=== PATIENT | male | born 1955 | race Caucasian/White ===

== ENCOUNTER 2021-04-24 18:44 | Inpatient (IN) ==
[2021-04-24] MEDS ORDERED: *HR* Dextrose 50 % in Water (Syg) 50 ML SYRINGE ONE (23:21)
[2021-04-24] MEDS ORDERED: *HR* Promethazine 25 MG/ML VIAL IM PRN (23:23)
[2021-04-24] MEDS ORDERED: Acetaminophen 325 MG TABLET PO PRN (23:23)
[2021-04-24] MEDS ORDERED: Naloxone 0.4 MG/ML INJ IVP PRN (23:23)
[2021-04-24] MEDS ORDERED: Dextrose Gel 15 GM/37.5 ML TUBE PO PRN ×2 (23:26)
[2021-04-24] MEDS ORDERED: D5% in Water 1,000 ML IVC PRN (23:26)
[2021-04-24] MEDS ORDERED: Saliva Stimulant 44.3ml BOTTLE PO PRN (23:29)
[2021-04-24] MEDS: *HR* Dextrose 50 % in Water (Syg) 50 ML SYRINGE IVP PRN (23:54)
[2021-04-25] MEDS ORDERED: Ampicillin/Sulbactam 3,000 MG in 0.9 % Sodium Chloride Mini Bag 100 ML IVPB SCH
[2021-04-25] MEDS ORDERED: Insulin DETEMIR 100 UNIT/ML X5UNITS SUBQ STA (00:39)
[2021-04-25 00:43] LABS: Adenovirus Not Detected (Not Detect); Bordetella Pertussis Not Detected (Not Detect); Chlamydophila pneumoniae Not Detected (Not Detect); Coronavirus 229E Not Detected (Not Detect); Coronavirus HKU1 Not Detected (Not Detect); Coronavirus NL63 Not Detected (Not Detect); Coronavirus OC43 Not Detected (Not Detect); Human Metapneumovirus DETECTED (Not Detect); Human Rhinovirus/Enterovirus Not Detected (Not Detect); Influenza A Subtype 2009 H1 Not Detected (Not Detect); Influenza B Not Detected (Not Detect); Mycoplasma pneumoniae Not Detected (Not Detect); Parainfluenza Virus 1 Not Detected (Not Detect); Parainfluenza Virus 2 Not Detected (Not Detect); Parainfluenza Virus 3 Not Detected (Not Detect); Parainfluenza Virus 4 Not Detected (Not Detect); Respiratory Syncytial Virus Not Detected (Not Detect); SARS-CoV-2 Not Detected (Not Detect)
[2021-04-25 00:45] LABS: VBG HCO3 30 mEq/L (21-27); VBG PCO2 36 mmHg (41-51); VBG PH 7.53 pH Units (7.32-7.42); VBG PO2 158 mmHg (25-50)
[2021-04-25 01:02] LABS: BUN/Creatinine Ratio 26 (6-26); Blood Urea Nitrogen 19 mg/dL (8-23); Calcium 7.7 mg/dL (8.6-10.3); Carbon Dioxide 30 mEq/L (23-29); Chloride 108 mEq/L (98-107); Glucose 90 mg/dL (70-105); Osmolality,Calculated 322 (280-300); Sodium 155 mEq/L (136-145); eGFR For African Americans > 60 (> 60); eGFR For Non-African Americans > 60 (> 60)
[2021-04-25 01:06] LABS: Chol/HDL Ratio 4.3 (0-4.9); Troponin I 0.06 ng/mL (< 0.04)
[2021-04-25 01:17] LABS: Thyroid Stimulating Hormone 0.333 mcIU/mL (0.340-5.600)
[2021-04-25 01:25] LABS: Folate 14.3 ng/mL (3.0-16.0)
[2021-04-25] MEDS ORDERED: Potassium Chloride 20 MEQ in D5% in Water 1,000 ML IVC SCH ×2 (02:45→03:30)
[2021-04-25 03:26] LABS: Estimated Average Glucose 278 mg/dl; Hemoglobin A1C 11.3 %
[2021-04-25] MEDS: Ipratropium/Albuterol Neb 3 ML IH SCH ×6 (04:14→23:34)
[2021-04-25] MEDS: Calcium Gluconate 1gm/50mL 1 GM/50 ML BAG IVPB SCH ×2 (05:45→06:47)
[2021-04-25 06:00] LABS: VBG HCO3 30 mEq/L (21-27); VBG PCO2 43 mmHg (41-51); VBG PH 7.45 pH Units (7.32-7.42); VBG PO2 147 mmHg (25-50)
[2021-04-25 06:02] LABS: Basophils % 0.1 %; Eosinophils % 0.1 %; Hematocrit 29.2 % (37.5-50.1); Immature Granulocytes % 0.6 % (0-4); Lymphocytes # 1.6 K/mcL (0.6-4.6); Lymphocytes % 10.3 %; Mean Corpuscular HGB Conc 30.5 g/dL (31.6-35.5); Mean Corpuscular Hemoglobin 24.8 pg (28.0-33.3); Mean Corpuscular Volume 81.3 fL (83.0-100.0); Mean Platelet Volume 9.4 fL (9.4-12.4); Monocytes # 0.8 K/mcL (0.0-1.3); Monocytes % 5.1 %; Platelet Count 191 K/mcL (140-400); Red Blood Count 3.59 M/mcL (4.19-5.50); Red Cell Distribution Width 25.1 % (11.5-14.5); Segmented Neutrophils % 83.8 %; White Blood Count 15.6 K/mcL (4.3-11.1)
[2021-04-25 06:14] LABS: Hemoglobin 8.9 g/dL (12.9-16.9); Neutrophils # 13.1 K/mcL (1.6-8.9)
[2021-04-25 06:25] LABS: BUN/Creatinine Ratio 30 (6-26); Blood Urea Nitrogen 19 mg/dL (8-23); Calcium 8.4 mg/dL (8.6-10.3); Carbon Dioxide 31 mEq/L (23-29); Chloride 99 mEq/L (98-107); Glucose 391 mg/dL (70-105); Osmolality,Calculated 299 (280-300); Potassium 3.7 mEq/L (3.5-5.1); Sodium 135 mEq/L (136-145); eGFR For African Americans > 60 (> 60); eGFR For Non-African Americans > 60 (> 60)
[2021-04-25 06:27] LABS: Anisocytosis 1+ (Not Present)
[2021-04-25 06:28] LABS: Hypochromasia Present (Not Present); Platelet Estimate Normal (Normal)
[2021-04-25] MEDS: *HR* Enoxaparin 40 MG/0.4 ML SYRINGE SQ SCH (06:47)
[2021-04-25] MEDS ORDERED: Insulin LISPRO 300 UNITS/3 ML VIAL SUBQ SCH (07:30)
[2021-04-25] MEDS: Budesonide/Formoterol 160/4.5 1 PUFF INH IH SCH ×2 (07:48→19:53)
[2021-04-25 08:01] LABS: ABG Base Excess 8 mEq/L (-2 to 3); ABG HCO3 32 mEq/L (21-27); ABG Oxygen Saturation 98 % (95-98); ABG PCO2 39 mmHg (35-45); ABG PH 7.52 pH Units (7.32-7.45); ABG PO2 97 mmHg (85-104); ABG TCO2 33 mEq/L (20-26)
[2021-04-25] MEDS: Insulin LISPRO 300 UNITS/3 ML VIAL SUBQ SCH ×4 (08:04→16:55)
[2021-04-25] MEDS: Lactobacillus 1 EACH CAP.SPRINK PO SCH ×2 (08:06→20:18)
[2021-04-25] MEDS: carvediloL 6.25 MG TABLET PO SCH ×2 (08:06→16:20)
[2021-04-25] MEDS: Nicotine 21 MG PATCH.TD24 TD SCH (08:07)
[2021-04-25] MEDS: Chlorhexidine Rinse 15 ML MOUTHWASH MM SCH ×2 (08:07→20:18)
[2021-04-25] MEDS: Piperacillin/Tazobactam 3.375 GM in 0.9 % Sodium Chloride Mini Bag 100 ML IVPB SCH ×3 (08:07→23:34)
[2021-04-25] MEDS ORDERED: Insulin DETEMIR 100 UNIT/ML X5UNITS SUBQ SCH ×2 (09:00)
[2021-04-25] MEDS: *HR* Dextrose 50 % in Water (Syg) 50 ML SYRINGE IVP PRN ×4 (11:04→21:58)
[2021-04-25 11:42] LABS: BUN/Creatinine Ratio 28 (6-26); Blood Urea Nitrogen 16 mg/dL (8-23); Calcium 9.6 mg/dL (8.6-10.3); Carbon Dioxide 30 mEq/L (23-29); Chloride 106 mEq/L (98-107); Glucose 131 mg/dL (70-105); Osmolality,Calculated 293 (280-300); Potassium 4.1 mEq/L (3.5-5.1); Sodium 140 mEq/L (136-145); eGFR For African Americans > 60 (> 60); eGFR For Non-African Americans > 60 (> 60)
[2021-04-25] MEDS ORDERED: GI Cocktail 40 ML EACH PO ONE (17:28)
[2021-04-25] MEDS: Insulin DETEMIR 100 UNIT/ML X5UNITS SUBQ SCH (20:19)
[2021-04-25 20:45] LABS: BUN/Creatinine Ratio 23 (6-26); Blood Urea Nitrogen 12 mg/dL (8-23); Calcium 9.1 mg/dL (8.6-10.3); Carbon Dioxide 28 mEq/L (23-29); Chloride 103 mEq/L (98-107); Glucose 48 mg/dL (70-105); Osmolality,Calculated 281 (280-300); Potassium 3.7 mEq/L (3.5-5.1); Sodium 137 mEq/L (136-145); eGFR For African Americans > 60 (> 60); eGFR For Non-African Americans > 60 (> 60)
[2021-04-25 20:49] LABS: Troponin I 0.05 ng/mL (< 0.04)
[2021-04-25] MEDS: *HR* OxyCODONE Immed Rel 5 MG TABLET PO PRN (23:51)
[2021-04-26] MEDS: Ipratropium/Albuterol Neb 3 ML IH SCH (05:00)
[2021-04-26 05:20] LABS: Hematocrit 33.6 % (37.5-50.1); Hemoglobin 10.2 g/dL (12.9-16.9); Mean Corpuscular HGB Conc 30.4 g/dL (31.6-35.5); Mean Corpuscular Hemoglobin 24.5 pg (28.0-33.3); Mean Corpuscular Volume 80.8 fL (83.0-100.0); Mean Platelet Volume 9.6 fL (9.4-12.4); Platelet Count 205 K/mcL (140-400); Red Blood Count 4.16 M/mcL (4.19-5.50); Red Cell Distribution Width 25.5 % (11.5-14.5); White Blood Count 12.8 K/mcL (4.3-11.1)
[2021-04-26 05:40] LABS: BUN/Creatinine Ratio 18 (6-26); Blood Urea Nitrogen 9 mg/dL (8-23); Calcium 8.9 mg/dL (8.6-10.3); Carbon Dioxide 27 mEq/L (23-29); Chloride 101 mEq/L (98-107); Glucose 186 mg/dL (70-105); Osmolality,Calculated 286 (280-300); Potassium 3.5 mEq/L (3.5-5.1); Sodium 136 mEq/L (136-145); eGFR For African Americans > 60 (> 60); eGFR For Non-African Americans > 60 (> 60)
[2021-04-26] MEDS: *HR* Enoxaparin 40 MG/0.4 ML SYRINGE SQ SCH (05:56)
[2021-04-26 07:04] VITALS: BP 115/79; PULSE 108; TEMP 99
[2021-04-26] MEDS: Budesonide/Formoterol 160/4.5 1 PUFF INH IH SCH (07:11)
[2021-04-26] MEDS: Piperacillin/Tazobactam 3.375 GM in 0.9 % Sodium Chloride Mini Bag 100 ML IVPB SCH (07:31)
[2021-04-26] MEDS: carvediloL 6.25 MG TABLET PO SCH (07:31)
[2021-04-26] MEDS: Lactobacillus 1 EACH CAP.SPRINK PO SCH (07:31)
[2021-04-26] MEDS: Insulin LISPRO 300 UNITS/3 ML VIAL SUBQ SCH (07:36)
[2021-04-26] MEDS: Insulin DETEMIR 100 UNIT/ML X5UNITS SUBQ SCH (07:37)
[2021-04-26] MEDS: Chlorhexidine Rinse 15 ML MOUTHWASH MM SCH (07:37)
[2021-04-26] MEDS: Nicotine 21 MG PATCH.TD24 TD SCH (07:37)
[2021-04-26] MEDS ORDERED: Insulin LISPRO 300 UNITS/3 ML VIAL SUBQ SCH (07:39)
[2021-04-26 10:10] VITALS: O2SAT 92
[2021-04-26] MEDS: *HR* OxyCODONE Immed Rel 5 MG TABLET PO PRN (10:42)
[2021-04-26 10:46] LABS: BUN/Creatinine Ratio 15 (6-26); Blood Urea Nitrogen 9 mg/dL (8-23); Calcium 8.9 mg/dL (8.6-10.3); Carbon Dioxide 27 mEq/L (23-29); Chloride 102 mEq/L (98-107); Glucose 179 mg/dL (70-105); Osmolality,Calculated 283 (280-300); Potassium 3.5 mEq/L (3.5-5.1); Sodium 135 mEq/L (136-145); eGFR For African Americans > 60 (> 60); eGFR For Non-African Americans > 60 (> 60)
== END 2021-04-26 12:03 | disposition home or self-care (01) | DRG 720 ==
LOC: 2NNU → SUATTDRO 22:55
PROVIDERS: ADMIT Internal Medicine; ATTEND Internal Medicine

== ENCOUNTER 2021-05-01 11:48 | Observation (INO) ==
[2021-05-01 12:34] LABS: Basophils % 0.2 %; Hematocrit 39.7 % (37.5-50.1); Immature Granulocytes % 0.5 % (0-4); Lymphocytes % 7.5 %; Mean Corpuscular HGB Conc 29.7 g/dL (31.6-35.5); Mean Corpuscular Hemoglobin 24.4 pg (28.0-33.3); Mean Corpuscular Volume 82.2 fL (83.0-100.0); Monocytes # 0.4 K/mcL (0.0-1.3); Monocytes % 3.1 %; Platelet Count 289 K/mcL (140-400); Red Blood Count 4.83 M/mcL (4.19-5.50); Segmented Neutrophils % 88.7 %; White Blood Count 13.2 K/mcL (4.3-11.1)
[2021-05-01 12:38] LABS: Hemoglobin 11.8 g/dL (12.9-16.9); Neutrophils # 11.7 K/mcL (1.6-8.9)
[2021-05-01 12:46] LABS: INR 1.2; Prothrombin Time 13.9 Seconds (9.4-12.1)
[2021-05-01 12:55] LABS: Anisocytosis 2+ (Not Present); Platelet Estimate Normal (Normal)
[2021-05-01] MEDS ORDERED: 0.9 % Sodium Chloride 500 ML IVC ONE (13:06)
[2021-05-01 13:07] LABS: Alanine Aminotransferase 220 Units/L (7-52); Albumin 3.4 g/dL (3.5-5.7); Albumin/Globulin Ratio 0.8 (1.1-2.2); Alkaline Phosphatase 160 Units/L (34-104); Aspartate Amino Transferase 163 Units/L (13-39); BUN/Creatinine Ratio 18 (6-26); Bilirubin,Direct 0.1 mg/dL (0.0-0.2); Bilirubin,Indirect 0.3 mg/dL (0.0-1.0); Bilirubin,Total 0.4 mg/dL (0.3-1.0); Blood Urea Nitrogen 18 mg/dL (8-23); Calcium 10.3 mg/dL (8.6-10.3); Carbon Dioxide 34 mEq/L (23-29); Chloride 92 mEq/L (98-107); Globulin 4.4 g/dL (2.4-3.5); Glucose 562 mg/dL (70-105); Magnesium 2.4 mg/dL (1.6-2.6); Osmolality,Calculated 316 (280-300); Sodium 139 mEq/L (136-145); Total Protein 7.8 g/dL (6.4-8.9); Troponin I 0.05 ng/mL (< 0.04); eGFR For African Americans > 60 (> 60); eGFR For Non-African Americans > 60 (> 60)
[2021-05-01] MEDS ORDERED: Piperacillin/Tazobactam 3.375 GM in 0.9 % Sodium Chloride Mini Bag 100 ML IVPB ONE (13:07)
[2021-05-01 13:38] LABS: Bilirubin,Urine Negative (Negative); Blood,Urine Negative (Negative); Clarity,Urine Clear (Clear); Color,Urine Light-Yellow (Yellow); Glucose,Urine (UA) >=1000 mg/dL (Normal); Ketones,Urine 40 mg/dL (Negative); Leukocyte Esterase,Urine Negative (Negative); Mucus,Urine Few per lpf (None-Few); Nitrite,Urine Negative (Negative); Protein,Urine 30 mg/dL (Neg-Trace); RBC,Urine 0-3 per hpf (0-3); Specific Gravity,Urine > 1.030 (1.010-1.025); Urobilinogen,Urine Normal (Normal); WBC,Urine 0-3 per hpf (0-3)
[2021-05-01 13:38] LABS: Influenza A PCR Negative (Negative); Influenza B PCR Negative (Negative); Resp. Syncytial Virus PCR Negative (Negative)
[2021-05-01 13:41] LABS: SARS-CoV-2 by PCR (In House) Negative (Negative)
[2021-05-01] MEDS ORDERED: Vancomycin 1,250 MG/262.5 ML IV.SOLN IVPB ONE (14:00)
[2021-05-01] MEDS ORDERED: 0.9 % Sodium Chloride 1,000 ML IVC ONE ×2 (15:52→17:27)
[2021-05-01 16:38] LABS: VBG HCO3 30 mEq/L (21-27); VBG PCO2 45 mmHg (41-51); VBG PH 7.43 pH Units (7.32-7.42); VBG PO2 54 mmHg (25-50)
[2021-05-01] MEDS ORDERED: Naloxone 0.4 MG/ML INJ IVP PRN (17:50)
[2021-05-01] MEDS ORDERED: Ondansetron 4 MG/2 ML VIAL IVP PRN (17:50)
[2021-05-01] MEDS ORDERED: Melatonin 3 MG TABLET PO PRN (17:53)
[2021-05-01] MEDS ORDERED: Nitroglycerin 0.4 MG TAB.SUBL SL PRN (17:53)
[2021-05-01] MEDS ORDERED: *HR* Dextrose 50 % in Water (Syg) 50 ML SYRINGE IVP PRN (18:52)
[2021-05-01] MEDS ORDERED: Dextrose Gel 15 GM/37.5 ML TUBE PO PRN ×2 (18:52)
[2021-05-01] MEDS ORDERED: D5% in Water 1,000 ML IVC PRN (18:52)
[2021-05-01] MEDS ORDERED: *HR* Labetalol 20 MG/4 ML SYRINGE IVP PRN (18:55)
[2021-05-01] MEDS: Ipratropium/Albuterol Neb 3 ML IH SCH ×2 (19:57→23:05)
[2021-05-01] MEDS ORDERED: Insulin LISPRO 300 UNITS/3 ML VIAL SUBQ SCH (21:00)
[2021-05-01] MEDS: Insulin DETEMIR 100 UNIT/ML X5UNITS SUBQ SCH ×2 (21:42→21:43)
[2021-05-02 00:05] LABS: Adenovirus Not Detected (Not Detect); Coronavirus 229E Not Detected (Not Detect); Coronavirus HKU1 Not Detected (Not Detect); Coronavirus NL63 Not Detected (Not Detect); Coronavirus OC43 Not Detected (Not Detect); SARS-CoV-2 Not Detected (Not Detect)
[2021-05-02 00:06] LABS: Bordetella Pertussis Not Detected (Not Detect); Chlamydophila pneumoniae Not Detected (Not Detect); Human Metapneumovirus DETECTED (Not Detect); Human Rhinovirus/Enterovirus Not Detected (Not Detect); Influenza A Subtype 2009 H1 Not Detected (Not Detect); Influenza B Not Detected (Not Detect); Mycoplasma pneumoniae Not Detected (Not Detect); Parainfluenza Virus 1 Not Detected (Not Detect); Parainfluenza Virus 2 Not Detected (Not Detect); Parainfluenza Virus 3 Not Detected (Not Detect); Parainfluenza Virus 4 Not Detected (Not Detect); Respiratory Syncytial Virus Not Detected (Not Detect)
[2021-05-02] MEDS: Piperacillin/Tazobactam 3.375 GM in 0.9 % Sodium Chloride Mini Bag 100 ML IVPB SCH ×2 (01:22→08:13)
[2021-05-02] MEDS: Ipratropium/Albuterol Neb 3 ML IH SCH ×3 (03:42→11:26)
[2021-05-02] MEDS ORDERED: *HR* Enoxaparin 40 MG/0.4 ML SYRINGE SQ SCH (06:00)
[2021-05-02] MEDS: Insulin LISPRO 300 UNITS/3 ML VIAL SUBQ SCH ×2 (07:29→11:28)
[2021-05-02] MEDS ORDERED: Nicotine 14 MG PATCH.TD24 TD SCH (09:00)
[2021-05-02 11:31] VITALS: BP 129/81; PULSE 85; TEMP 98.6
[2021-05-02 12:09] VITALS: O2SAT 94
[2021-05-05 19:49] LABS: CK-BB (CK isoenzymes) 4 % (0-0); CK-MB (CK isoenzymes) 0 % (0-4); CK-MM (CK-isoenzymes) 19 % (96-100)
[2021-05-06 07:19] LABS: CK Total (Ck Isoenzymes) 222 U/L (20-200)
== END 2021-05-02 14:08 | disposition left against medical advice (07) ==
LOC: 2ANU 11:48 → EMEROOARM 11:48 → SUATTDRO 18:49 → 2ANU 19:24
PROVIDERS: ADMIT Family Medicine; ATTEND Student in an Organized Health Care Education/Training Program